=== PATIENT | female | born 1955 | race Caucasian/White ===

== ENCOUNTER 2017-12-28 17:10 | Emergency (ER) | payer OTHER ==
[~2017-12-28] VITALS: Ht 165.1 cm; Wt 67.1 kg
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
--- NOTE | 2017-12-28 17:30 | NUR ---
IV ACCESS STARTED. BLOOD DRAWN FOR LABS.
[2017-12-28 17:48] LABS: BASOPHILS % (AUTO) 0.2 % (0.0-2.0); EOSINOPHILS % (AUTO) 0.7 % (0.0-6.0); HEMATOCRIT 39 % (33-45); HEMOGLOBIN 13.7 g/dL (11.5-14.8); LYMPHOCYTES # (AUTO) 1.7 /CMM (0.8-4.8); LYMPHOCYTES % (AUTO) 13.1 % (20.0-44.0); MEAN CORPUSCULAR HEMOGLOBIN 31 PG (26.0-33.0); MEAN CORPUSCULAR HGB CONC 35 g/dl (31.0-36.0); MEAN CORPUSCULAR VOLUME 89 fL (82-100); MONOCYTES # (AUTO) 0.5 /CMM (0.1-1.30); MONOCYTES % (AUTO) 3.5 % (2.0-12.0); NEUTROPHILS # (AUTO) 10.9 /CMM (1.8-8.9); NEUTROPHILS % (AUTO) 82.5 % (43.0-81.0); PLATELET COUNT (AUTO) 280 /CMM (150-450); RDW COEFFICIENT OF VARIATION 12.7 (11.5-15.0); RED BLOOD CELL COUNT(AUTO) 4.39 MIL/uL (4.0-5.2); WHITE BLOOD COUNT (AUTO) 13.3 K/uL (4.3-11.0)
--- NOTE | 2017-12-28 17:50 | NUR ---
PT TAKEN TO CT SCAN.
[2017-12-28] MEDS ORDERED: IBUP-23 PO (17:55)
[2017-12-28 17:57] LABS: CALCIUM, SERUM 9.1 mg/dL (8.5-10.1); CREATININE 0.8 mg/dL (0.6-1.3); POTASSIUM 4.1 mmol/L (3.5-5.1)
[2017-12-28] MEDS ORDERED: IV NS 0.9% 250 ML IV ONE (18:10)
[2017-12-28] MEDS ORDERED: IOHEXOL-300 100 ML VIAL IV ONE (18:10)
[2017-12-28] MEDS ORDERED: CT SWABBABLE VALVE TRANS SET 1 EA INFUS.SET MC ONE (18:10)
--- NOTE | 2017-12-28 18:40 | NUR ---
C-SPINE PRECAUTIONS IMPLEMENTED.
[2017-12-28] MEDS ORDERED: ONDANSETRON HCL/PF 4 MG/2 ML VIAL ONE (18:50)
[2017-12-28] MEDS ORDERED: MORPHINE SULFATE INJ 4 MG/ML DISP.SYRIN ONE (18:50)
--- NOTE | 2017-12-28 18:55 | NUR ---
[facility] CALLED [facility] 1954 TRANSFER #[id number]
--- NOTE | 2017-12-28 18:58 | NUR ---
PT MEDICATED ORDERED.
[2017-12-28] MEDS ORDERED: IV NS 0.9% 1,000 ML BAG IV ONE (19:00)
[2017-12-28] MEDS ORDERED: MORPHINE SULFATE INJ 2 MG/ML DISP.SYRIN IV ONE (19:00)
[2017-12-28] MEDS ORDERED: ONDANSETRON HCL/PF 4 MG/2 ML VIAL IVP ONE (19:00)
[2017-12-28 19:03] VITALS: BP 130/82
--- NOTE | 2017-12-28 19:04 | NUR ---
REPORT GIVEN TO GARO POWELL [place] FAX INFO TO
--- NOTE | 2017-12-28 19:08 | NUR ---
REPORT GIVEN TO TAMMIE DHALIWAL FOR [facility].
--- NOTE | 2017-12-28 19:12 | NUR ---
REPORT RECEIVED FROM ISRA WESTBROOK FOR [facility].
--- NOTE | 2017-12-28 19:35 | NUR ---
REPORT GIVEN TO ANGELA MOORE FOR TRANSPORT. VSS.
== END 2017-12-28 19:47 | disposition short-term general hospital (02) ==
LOC: ER 17:11
DX: S22.43XA Multiple fractures of ribs, bilateral, initial encounter for closed fracture (principal); S22.22XA Fracture of body of sternum, initial encounter for closed fracture; S12.690A Other displaced fracture of seventh cervical vertebra, initial encounter for closed fracture; V43.52XA Car driver injured in collision with other type car in traffic accident, initial encounter; Y93.89 Activity, other specified; Y92.413 State road as the place of occurrence of the external cause; Y99.8 Other external cause status
CPT/HCPCS: 36415; 71260; 72125; 80048; 85025; 96374; 96375; 99285; A4606; J2270; J2405; J7030; J7050; L0172; Q9967; Z7610